=== PATIENT | female | born 1990 | race Caucasian/White ===

== ENCOUNTER 2023-09-29 00:56 | Day surgery (SDC) | payer SELFPAY ==
[2023-09-29 01:03] VITALS: BMI 27.9
[2023-09-29] MEDS: ONDANSETRON 4 MG/2 ML VIAL IVPUSH ONE (02:13)
[2023-09-29] MEDS: SODIUM CHLORIDE 1,000 ML IV STA (02:13)
[2023-09-29 02:38] LABS: PH,URINE 6.5 (5.0-8.0); URINE APPEARANCE CLEAR; URINE BILIRUBIN NEGATIVE (NEGATIVE); URINE COLOR YELLOW; URINE GLUCOSE (UA) NEGATIVE (NEGATIVE); URINE KETONE NEGATIVE (NEGATIVE); URINE LEUK ESTERASE NEGATIVE (NEGATIVE); URINE NITRITE NEGATIVE (NEGATIVE); URINE PROTEIN NEGATIVE (NEGATIVE); URINE UROBILINOGEN 0.2 mg/dL (0.2-1.0)
[2023-09-29] MEDS ORDERED: METOCLOPRAMIDE HCL INJECTION 10 MG/2 ML VIAL ONE (03:01)
[2023-09-29 03:27] LABS: BASO % 0.2 % (0-2.0); EOS % 0.3 % (0-4.5); HEMATOCRIT 36.3 % (32.4-45.2); HEMOGLOBIN 12.6 GM/dL (10.7-15.3); LYMPH % 11.7 % (8-40); MCH 34.1 pg (25.7-33.7); MCHC 34.7 g/dl (32.0-36.0); MEAN CELL VOLUME 98.3 fl (80-96); MEAN PLT VOLUME 7.3 fl (7.5-11.1); MONO % 6.8 % (3.8-10.2); PLATELET COUNT 300 10^3/uL (134-434); RBC 3.69 M/mm3 (3.60-5.2); RDW 13.7 % (11.6-15.6); WHITE BLOOD COUNT 16.2 K/mm3 (4.0-10.0)
[2023-09-29] MEDS: SODIUM CHLORIDE 0.9% 500 ML INFUS.BAG IV ONE (03:30)
[2023-09-29] MEDS: METOCLOPRAMIDE HCL INJECTION 10 MG/2 ML VIAL IVPB ONE (03:35)
[2023-09-29 03:45] LABS: POTASSIUM 3.4 mmol/L (3.5-5.1)
[2023-09-29 03:48] LABS: BLOOD UREA NITROGEN 12.8 mg/dL (7-18); CALCIUM 8.6 mg/dL (8.5-10.1)
[2023-09-29 03:51] LABS: CREATININE 0.7 mg/dL (0.55-1.3)
[2023-09-29 03:53] LABS: BILIRUBIN,TOTAL 0.3 mg/dL (0.2-1); TOT PROT 6.4 g/dl (6.4-8.2)
[2023-09-29] MEDS: SODIUM CHLORIDE 0.9% 1000 ML INFUS.BAG IV ONE (06:28)
[2023-09-29] MEDS ORDERED: ACETAMINOPHEN INJECTION 100 ML IVPB ONE (06:31)
[2023-09-29] MEDS: ACETAMINOPHEN 1000 MG/100 ML BAG IVPB ONE (07:03)
[2023-09-29 10:11] LABS: BASO % 0.2 % (0-2.0); EOS % 0.6 % (0-4.5); HEMATOCRIT 31.9 % (32.4-45.2); HEMOGLOBIN 10.9 GM/dL (10.7-15.3); LYMPH % 18.2 % (8-40); MCH 33.9 pg (25.7-33.7); MCHC 34.2 g/dl (32.0-36.0); MEAN PLT VOLUME 7.4 fl (7.5-11.1); MONO % 6.5 % (3.8-10.2); NEUT % 74.5 % (42.8-82.8); PLATELET COUNT 255 10^3/uL (134-434); RBC 3.22 M/mm3 (3.60-5.2); RDW 13.6 % (11.6-15.6); WHITE BLOOD COUNT 11.1 K/mm3 (4.0-10.0)
[2023-09-29] MEDS ORDERED: SODIUM CHLORIDE 1,000 ML IV SCH (11:00)
[2023-09-29] MEDS ORDERED: ONDANSETRON 4 MG/2 ML VIAL IVPUSH PRN (11:33)
[2023-09-29] MEDS ORDERED: ROCURONIUM BROMIDE 50 MG/5 ML SYRINGE ONE (11:40)
[2023-09-29] MEDS ORDERED: MIDAZOLAM HCL 2 MG/2 ML SINGLE DOSE VIAL ONE (11:40)
[2023-09-29] MEDS ORDERED: PROPOFOL 20 ML ONE (11:40)
[2023-09-29] MEDS ORDERED: FENTANYL CITRATE/PF 50 MCG/ML VIAL ONE ×3 (11:40→13:17)
[2023-09-29] MEDS ORDERED: BUPIVACAINE HCL/PF 0.5% (5MG/ML) 10 ML VIAL ONE (11:50)
[2023-09-29] MEDS: BUPIVACAINE HCL/PF 0.5% (5 MG/ML) 30 ML VIAL IJ ONE ×2 (12:20)
[2023-09-29] MEDS ORDERED: SUGAMMADEX SODIUM 200 MG/2 ML VIAL ONE (12:40)
[2023-09-29] MEDS ORDERED: oxyCODONE HCL 5 MG TABLET PO PRN (15:15)
[2023-09-29] MEDS: oxyCODONE HCL 5 MG TABLET PO ONE (15:15)
[2023-09-29] MEDS ORDERED: oxyCODONE HCL 5 MG TABLET ONE (15:15)
[2023-09-29 15:29] VITALS: RESP 16
[2023-09-29 16:47] VITALS: BP 104/69; PULSE 79; TEMP 99.1
== END 2023-09-29 16:20 | disposition home or self-care (01) ==
LOC: JER 00:56 → JASUSAT 10:55
PROVIDERS: ATTEND Student in an Organized Health Care Education/Training Program
PROC: 0UB64ZZ Excision of Left Fallopian Tube, Percutaneous Endoscopic Approach (ICD-10-PCS; principal; 2023-09-29 12:00)
DX: O00.102 Left tubal pregnancy without intrauterine pregnancy (principal)
CPT/HCPCS: 36415; 76830-TC; 80053; 81003; 83690; 84702; 84703; 85025; 86850; 86900; 86901; 87086; 88305-TC; 93005; 93010; 94760; 99285-25; J0131